=== PATIENT | male | born 1955 | race Caucasian/White ===

== ENCOUNTER 2019-05-26 10:11 | Observation (INO) | payer BC ==
[2019-05-26] VITALS (28 sets, daily range): BP systolic 123–176; BP diastolic 62–99; PULSE 57–105; RESP 11–25; Ht 177.8 cm; Wt 78.3 kg
[~2019-05-26] VITALS: Ht 177.8 cm; Wt 78.3 kg
[~2019-05-26 10:11] MED LIST: CIPR500T4 PO; HYDR-3601 PO; METF-480 PO
[2019-05-26] MEDS ORDERED: SOD CHLORIDE 0.9% 1,000 ML IV STA (12:09)
[2019-05-26] MEDS ORDERED: ONDANSETRON 4 MG INJ IV STA (12:09)
[2019-05-26] MEDS ORDERED: morphine 4 MG/ML VIAL IV STA (12:09)
[2019-05-26] MEDS ORDERED: CEFTRIAXONE 1 GM/50 ML (PMX) 50 ML IVPB ONE (13:00)
[2019-05-26] MEDS ORDERED: SOD CHLORIDE 0.9% 1,000 ML IV SCH (13:54)
[2019-05-26] MEDS ORDERED: ONDANSETRON 4 MG INJ IV PRN ×2 (14:00→19:00)
[2019-05-26] MEDS ORDERED: ACETAMINOPHEN 325 MG TAB PO PRN ×2 (14:00→17:30)
[2019-05-26] MEDS ORDERED: THIAMINE 200 MG INJ IM ONE (17:00)
[2019-05-26] MEDS ORDERED: PNEUMOC 13-VAL CONJ-DIP CRM/PF 0.5 ML SYR IM* ONE (17:30)
[2019-05-26] MEDS ORDERED: DIPHTH/TET/ACEL PERTUSS (ADULT) 0.5 ML VIAL IM* ONE (17:30)
[2019-05-26] MEDS ORDERED: DOCUSATE SODIUM 100 MG CAP PO PRN (17:30)
[2019-05-26] MEDS ORDERED: morphine 2 MG INJ IV PRN (17:30)
[2019-05-26] MEDS ORDERED: NACL 0.9% 3 ML SYG IV SCH (17:30)
[2019-05-26] MEDS ORDERED: HYDROCODONE/APAP (5/325) TAB PO PRN (17:30)
[2019-05-26] MEDS ORDERED: GLUCOSE GEL 15 GRAM TUBE BUCCAL PRN (18:00)
[2019-05-26] MEDS ORDERED: DEXTROSE 50% 50 ML SYRINGE IV PRN ×2 (18:00)
[2019-05-26] MEDS ORDERED: GLUCOSE GEL 15 GRAM TUBE PO PRN ×2 (18:00)
[2019-05-26] MEDS ORDERED: GLUCAGON 1 MG INJ IM PRN (18:00)
[2019-05-26] MEDS: INSULIN ASPART [NOVOLOG] 3 ML PEN SC SCH ×2 (18:00→21:00)
[2019-05-26] MEDS ORDERED: FENTAnyl 50 MCG/ML VIAL IV PRN (19:00)
[2019-05-26] MEDS ORDERED: HYDROmorphONE 1 MG/5 ML IV SYRINGE IV PRN ×3 (19:00)
[2019-05-26] MEDS ORDERED: DIPHENHYDRAMINE 50 MG INJ IV PRN (19:00)
[2019-05-26] MEDS ORDERED: SEVOFLURANE 15 MIN ONE (19:00)
[2019-05-26] MEDS ORDERED: hydrALAzine 20 MG INJ IV PRN (19:00)
[2019-05-26] MEDS ORDERED: EPHEDrine 25 MG/5 ML SYG IV PRN (19:00)
[2019-05-26] MEDS ORDERED: PROCHLORPERAZINE 10 MG INJ IV PRN (19:00)
[2019-05-26] MEDS ORDERED: MEPERIDINE 25 MG INJ IV PRN (19:00)
[2019-05-26] MEDS ORDERED: LABETALOL HCL 20MG INJ IV PRN (19:00)
[2019-05-26] MEDS ORDERED: BUPIVACAINE 0.25% (MPF) 30 ML INJ ONE (19:05)
[2019-05-26] MEDS ORDERED: MIDAZOLAM 1 MG/ML 2 ML INJ ONE (19:16)
[2019-05-26] MEDS ORDERED: PROPOFOL 20 ML ONE (19:16)
[2019-05-26] MEDS ORDERED: LIDOCAINE 2% (SDV) 5 ML INJ ONE (19:16)
[2019-05-26] MEDS ORDERED: FENTAnyl 50 MCG/ML VIAL ONE (19:16)
[2019-05-26] MEDS ORDERED: POLYMYXIN/BACITRACIN 1L IRRIG ONE (19:21)
[2019-05-26] MEDS ORDERED: BUPIVACAINE 0.5% (SDV) 30 ML INJ ONE (19:21)
[2019-05-26] MEDS ORDERED: EPHEDrine 25 MG/5 ML SYG ONE (19:31)
[2019-05-26] MEDS ORDERED: FAMOTIDINE 20 MG INJ ONE (19:33)
[2019-05-26] MEDS ORDERED: ONDANSETRON 4 MG INJ ONE (19:33)
[2019-05-26] MEDS ORDERED: GLYCOPYRROLATE 0.4 MG INJ ONE (19:40)
[2019-05-26] MEDS ORDERED: POLYMYXIN/BACITRACIN 1L IRRIG IRR ONE (19:48)
[2019-05-26] MEDS ORDERED: NEOMYC/POLYMYX/BACIT 30 GM OINT ONE (19:51)
[2019-05-26] MEDS: ACCU-CHEK XX SCH (20:00)
[2019-05-26] MEDS: HYDROCODONE/APAP (5/325) TAB PO PRN (23:45)
[2019-05-27 00:20] VITALS: BP 126/62; PULSE 58; RESP 18
[2019-05-27 01:35] VITALS: BP 130/67; PULSE 64; RESP 17
[2019-05-27] MEDS ORDERED: ACCU-CHEK XX SCH (02:00)
[2019-05-27] MEDS: HYDROCODONE/APAP (5/325) TAB PO PRN ×2 (05:40→11:40)
[2019-05-27] MEDS ORDERED: PANTOPRAZOLE (EC) 40 MG TAB PO SCH (06:00)
[2019-05-27 07:26] VITALS: BP 127/67; PULSE 52; RESP 16
[2019-05-27] MEDS ORDERED: metFORMIN 850 MG TAB PO SCH (08:00)
[2019-05-27] MEDS: INSULIN ASPART [NOVOLOG] 3 ML PEN SC SCH ×2 (08:00→12:04)
[2019-05-27] MEDS ORDERED: HEPARIN 5,000 UNIT/1 ML VIAL SC SCH (09:00)
[2019-05-27] MEDS ORDERED: THIAMINE 100 MG TAB PO SCH (09:00)
[2019-05-27] MEDS: ACCU-CHEK XX SCH ×2 (10:00→14:00)
[2019-05-27] MEDS ORDERED: DIPHTH/TET/ACEL PERTUSS (ADULT) 0.5 ML VIAL IM* ONE (11:00)
[2019-05-27] MEDS ORDERED: PNEUMOC 13-VAL CONJ-DIP CRM/PF 0.5 ML SYR IM* ONE (11:00)
[2019-05-27] MEDS ORDERED: CEFTRIAXONE 1 GM/50 ML (PMX) 50 ML IVPB SCH (13:00)
== END 2019-05-27 15:10 | disposition home or self-care (01) ==
LOC: FTE 10:11 → 2NE 13:54
PROVIDERS: ADMIT Internal Medicine; ATTEND Internal Medicine
DX: S31.21XA Laceration without foreign body of penis, initial encounter (principal); K21.9 Gastro-esophageal reflux disease without esophagitis; E66.9 Obesity, unspecified; E11.9 Type 2 diabetes mellitus without complications; Z23 Encounter for immunization; Z79.4 Long term (current) use of insulin; X58.XXXA Exposure to other specified factors, initial encounter; Y92.89 Other specified places as the place of occurrence of the external cause; Y93.89 Activity, other specified; Y99.8 Other external cause status
CPT/HCPCS: 12044; 80053; 81001; 82962; 83036; 84155; 84165; 85025; 85610; 85730; 90670; 90715; 99217; J0360; J0696; J1815; J2250; J2270; J2405; J3010; J3411; J7030; 88304; 96365; 96375; G0378; J1644